=== PATIENT | male | born 1965 | race Caucasian/White ===

== ENCOUNTER 2016-11-27 19:54 | Emergency (ER) | payer OTHER ==
[~2016-11-27] VITALS: Ht 177.8 cm; Wt 74.8 kg
[~2016-11-27 19:54] MED LIST: LISI-552 PO; LISINOPRIL
--- NOTE | 2016-11-27 20:12 | ED General ---
General Chief Complaint: Psych/Social Disorder Stated Complaint: SOB/NUMBNESS Source of Information: Patient Exam Limitations: No Limitations History of Present Illness Time Seen by Provider: 20:09 Initial Comments To ER with reports of left arm tingling, difficulty breathing, headache, shaking. This all began about 1 hour prior to arrival when he was on a walk with his . The bowel 3 mile walk at that time, he felt a very sharp pain in the left groin that has completely resolved. Immediately after the sharp pain he developed an "warm" sensation to the lower abdomen and they became very shaky, tingling in the left hand, very anxious. He has no history of anxiety. He does state that he has an adrenal gland mass which she has been sent to an mixer driver for. He was told that whenever he has one of these episodes he should begin a 24-hour urine collection. Timing/Duration: 1 Hour Severity: Moderate Allergies and Home Medications Allergies Coded Allergies: No Known Drug Allergies (Unverified , 11/27/16) Home Medications Lisinopril 20 Mg Tablet, 20 MG PO DAILY, #30 Ref 0 Prescribed by: ANTIONE GALAVIZ on 09/28/15 1516 [Lisinopril] , (Reported) Constitutional: see HPI EENTM: see HPI Respiratory: no symptoms reported Cardiovascular: no symptoms reported Genitourinary: no symptoms reported Musculoskeletal: no symptoms reported Skin: no symptoms reported Psychiatric/Neurological: See HPI, Anxiety, Headache, Tingling, Tremors Hematologic/Lymphatic: No Symptoms Reported Immunological/Allergic: no symptoms reported Past Iwwsocn-Mkwkdy-Zjtcme Hx Patient Social History Alcohol Use: Occasionally Uses Recreational Drug Use: No 2nd Hand Smoke Exposure: No Recent Hopitalizations: No Immunizations Up To Date Tetanus Booster (TDap): Unknown Seasonal Allergies Seasonal Allergies: No Surgeries HX Surgeries: Yes Surgeries: Orthopedic Respiratory Hx Respiratory Disorders: No Cardiovascular Hx Cardiac Disorders: No Cardiac Disorders: Hypertension Neurological Hx Neurological Disorders: No Reproductive System Hx Reproductive Disorders: No Genitourinary Hx Genitourinary Disorders: No Gastrointestinal Hx Gastrointestinal Disorders: No Musculoskeletal Hx Musculoskeletal Disorders: No Endocrine Hx Endocrine Disorders: No HEENT HX ENT Disorders: No Cancer Hx Cancer: No Psychosocial Hx Psychiatric Problems: No Behavioral Health Disorders: Anxiety Family Medical History Significant Family History: No Pertinent Family Hx Physical Exam Vital Signs Capillary Refill : General Appearance: No Apparent Distress, WD/WN, Anxious, Other (very anxious upon arrival, pacing in the waiting room.) Eyes: Bilateral Eye EOMI, Bilateral Eye Normal Inspection, Bilateral Eye PERRL HEENT: PERRL/EOMI, TMs Normal Neck: Full Range of Motion, Normal Inspection Respiratory: Normal Breath Sounds, No Accessory Muscle Use, No Respiratory Distress Cardiovascular: Regular Rate, Rhythm, Normal Peripheral Pulses Gastrointestinal: Normal Bowel Sounds, Non Tender, Soft Extremity: Normal Capillary Refill, Normal Inspection Neurologic/Psychiatric: Alert, Oriented x3, No Motor/Sensory Deficits Skin: Normal Color, Warm/Dry Comments 2010-- blood pressure 140/100, heart rate 66 sinus. No neurologic deficit at this time and the tingling in left arm has resolved. Denies headache. Denies abdominal or groin pain. Progress/Results/Core Measures Results/Orders My Orders Orders - CYDNEY ARCHER APRN Cbc With Automated Diff (11/27/16 20:08) Comprehensive Metabolic Panel (11/27/16 20:08) Thyroid Stimulating Hormone (11/27/16 20:08) Free T4 (Free Thyroxine) (11/27/16 20:08) Saline Lock/Iv-Start (11/27/16 20:08) Ua Culture If Indicated (11/27/16 20:08) Lorazepam Injection (Ativan Injection) (11/27/16 20:15) Departure Communication Progress Notes Discussed with the patient and his the possibility of pheochromocytoma. He will go home and begin the 24-hour urine collection test. Impression Impression: Primary Impression: Anxiety Disposition: 01 HOME, SELF-CARE Condition: Stable Departure-Patient Inst. Decision time for Depature: 20:12 Referrals: HAO LUCIO MD (PCP/Family) Primary Care Physician Patient Instructions: NO INSTRUCTIONS GIVEN Add. Discharge Instructions: 1. Return to ER for any concerns 2. Go home and begin the 24 hour urine collection test. All discharge instructions reviewed with patient and/or family. Voiced understanding. CYDNEY ARCHER APRN Nov 27, 2016 20:12
[2016-11-27 20:14] LABS: BASOPHILS % (AUTO) 0 % (0-10); EOSINOPHILS # (AUTO) 0.3 10^3/uL (0.0-0.3); EOSINOPHILS % (AUTO) 3 % (0-10); LYMPHOCYTES # (AUTO) 3.9 X 10^3 (1.0-4.0); LYMPHOCYTES % (AUTO) 43 % (12-44); MEAN CORPUSCULAR HEMOGLOBIN 31 PG (25-34); MEAN CORPUSCULAR HGB CONC 35 G/DL (32-36); MEAN CORPUSCULAR VOLUME 88 FL (80-99); MEAN PLATELET VOLUME 9.3 FL (7.4-10.4); MONOCYTES # (AUTO) 0.7 X 10^3 (0.0-1.0); MONOCYTES % (AUTO) 8 % (0-12); NEUTROPHILS # (AUTO) 4.1 X 10^3 (1.8-7.8); NEUTROPHILS % (AUTO) 45 % (42-75); PLATELET COUNT 222 10^3/uL (130-400); RED BLOOD COUNT 4.77 10^6/uL (4.35-5.85); RED CELL DISTRIBUTION WIDTH 12.7 % (10.0-14.5)
[2016-11-27] MEDS ORDERED: LORazepam INJ 2 MG/ML (ATIVAN) VIAL IVP ONE (20:15)
[2016-11-27 20:39] LABS: ALANINE AMINOTRANSFERASE 21 U/L (0-55); ALBUMIN 4.4 GM/DL (3.2-4.5); ANION GAP 12 MMOL/L (5-14); ASPARTATE AMINO TRANSFERASE 24 U/L (5-34); BILIRUBIN,TOTAL 0.5 MG/DL (0.1-1.0); BLOOD UREA NITROGEN 16 MG/DL (7-18); BUN/CREATININE RATIO 13 (0-20); CALCIUM 9.4 MG/DL (8.5-10.1); CARBON DIOXIDE 23 MMOL/L (21-32); CHLORIDE 106 MMOL/L (98-107); CREATININE SERUM 1.24 MG/DL (0.60-1.30); GFR ESTIMATED > 60; GLUCOSE 144 MG/DL (70-105); HEMOLYSIS 10 (-100-29); ICTERUS 0.9 (-100-1.9); LIPEMIA 10 (-100-49); POTASSIUM 3.8 MMOL/L (3.6-5.0); SODIUM 141 MMOL/L (135-145); TOTAL PROTEIN 7.4 GM/DL (6.4-8.2)
[2016-11-27 21:00] LABS: THYROID STIMULATING HORMONE 1.31 UIU/ML (0.35-4.94)
--- NOTE | 2016-11-27 21:06 | Diagnostic Imaging Report ---
PROCEDURE: CT head without contrast. TECHNIQUE: Multiple contiguous axial images were obtained through the brain without the use of intravenous contrast. INDICATION: Headache and dizziness. COMPARISON: 09/28/2015. FINDINGS: No hyperdense hemorrhage or space-occupying mass. No hydrocephalus or midline shift. No evidence of territorial infarct. No acute calvarial abnormality. Orbits are normal. Paranasal sinuses and mastoid air cells are clear. IMPRESSION: 1. No acute intracranial process. Dictated by: Dictated on workstation # [id number]
[2016-11-27 21:28] VITALS: BP 116/80
[2016-11-27 21:36] LABS: BILIRUBIN,URINE NEGATIVE (NEGATIVE); KETONES,URINE NEGATIVE (NEGATIVE); LEUKOCYTE ESTERASE ,URINE NEGATIVE (NEGATIVE); NITRITE,URINE NEGATIVE (NEGATIVE); PH,URINE 6 (5-9); PROTEIN,URINE NEGATIVE (NEGATIVE); UROBILINOGEN,URINE NORMAL (NORMAL)
[2016-11-27 21:46] LABS: SQUAMOUS EPITHELIAL CELL,UR RARE /HPF
--- OUTSIDE RECORDS SUMMARY | 2016-11-28 09:32 | XMS REPORT | Continuity of Care Document ---
Author Author [facility] Organization [facility] Address Unknown Phone Unavailable Care Team Providers Care Materials Handler Name Role Phone Unverified, Unverified PCP Unavailable Source Comments Some departments are not documenting in the electronic medical record. 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
== END 2016-11-27 21:20 | disposition home or self-care (01) ==
LOC: EDUNIT# 19:54 → ER 19:55
DX: F41.9 Anxiety disorder, unspecified (principal); I10 Essential (primary) hypertension
CPT/HCPCS: 36415; 70450; 80053; 81000; 84439; 84443; 85025; 96374